=== PATIENT | male | born 2000 | race Caucasian/White ===

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

== ENCOUNTER 2019-01-15 09:27 | Outpatient (CLI) | payer OTHER, SELFPAY ==
[2019-01-15 10:25] LABS: Bilirubin Negative (Negative); Blood Negative (Negative); Clarity Clear; Glucose Negative (Negative); Ketones Negative (Negative); Leukocyte Esterase Negative (Negative); Nitrite Negative (Negative); Specific Gravity >= 1.030 (1.005-1.025); Urobilinogen 0.2 EU/dL (Up TO 0.2); pH 5.5 (5-8)
[2019-01-15 12:45] LABS: Hemoglobin A1C 5.6 % (4.5-6.2)
[2019-01-16 15:41] LABS: HCT 49.5 % (40.0-50.0); HGB 16.7 g/dL (13.5-17.5)
== END 2019-01-15 09:47 ==
PROVIDERS: PCP Internal Medicine; Visit Provider Nurse Practitioner
DX: Z00.00 Encounter for general adult medical examination without abnormal findings (principal)
CPT/HCPCS: 36415; 81003; 83036; 85014; 85018

== ENCOUNTER 2019-04-24 08:40 | Emergency (ER) | payer OTHER, SELFPAY ==
[2019-04-24] VITALS (11 sets, daily range): BP systolic 111–116; BP diastolic 74–84; PULSE 54–72; RESP 16; TEMP 36.7; O2SAT 97–100
--- NOTE | 2019-04-24 09:39 | ED.GENADUL_ITS ---
Discharge Plan Disposition Patient Disposition: HOME Condition: Stable Discharge Details Chief Complaint: Allergic Clinical Impression: Allergy to environmental factors Primary Care Provider: David Snyder ED Provider: Damian Nunez Home Meds and New Rx's Prescriptions: New cetirizine [Zyrtec] 10 mg tablet 10 mg PO DAILY Qty: 30 RF: 0 No Action ibuprofen 200 mg Tablet 800 mg PO ONCE RF: 0 Discharge Instructions Instructions: Allergies (ED) Additional Instructions: Please go home and start the Zyrtec right away and take 25 mg of Benadryl in addition to this. Watch your symptoms over the next 24 hours for any worsening redness, swelling, or fever chills return immediately to the emergency department for reassessment. Otherwise if improving you may continue to take Zyrtec daily. Referrals: David Snyder MD [Primary Care Provider] - (As needed for reassessment) Discharge Data Discharge Date/Time-TO BE ENTERED AT DEPARTURE: 04/24/19 09:59 Medical Decision Making Patient presenting to the emergency department for chief complaint of redness to face. He states that he woke up this morning with 2 streaks to the right side of his face that are now improving. Patient does state some itchy watery eyes along with clear nasal drainage. Physical exam shows very mild erythema in linear fashion to the right side of the face, noted nasal congestion with otherwise unremarkable HEENT exam. Patient does state that she has allergies and also sleeps on that side of his face with this pillow. Patient was recommended to change his pillowcase, and use an antihistamine as I feel that this is more environmental allergy related than infectious. Return cautions were discussed. After discussion of diagnosis and plan of care patient has no further needs, questions, or concerns and states clear understanding to return to the emergency department for any worsening symptoms. HPI General Mode of arrival: ambulatory . Date/Time Provider Initiated Documentation: 04/24/19 08:46 . Limitations to Documentation: no limitations . Information obtained by: patient . History of Present Illness 19 year old M presents to the emergency department with the chief complaint of allergic reaction, described as mild, Quality is described as other (denies pain), and is localized to the face. Patient started experiencing this hour(s) (2) No relieving factors improve symptom(s), Patient notes no other symptoms.. Patient did receive the following treatments prior to arrival, none Related Data Home Medications Medication Instructions Recorded Confirmed ibuprofen 800 mg PO ONCE 11/04/18 12/13/18 cetirizine [Zyrtec] 10 mg PO DAILY #30 tab 04/24/19 Previous Rx's Medication Instructions Recorded cetirizine [Zyrtec] 10 mg PO DAILY #30 tab 04/24/19 Allergies Allergy/AdvReac Type Severity Reaction Status Date / Time No Known Allergies Allergy Unverified 12/13/18 09:50 General Stated Complaint: Allergic ENRIQUE: 4 Review of Systems Constitutional Denies chills and Denies fever(s) Eyes Reports irritation and Reports itchy eyes ENT Denies lip swelling, Reports nasal congestion, Reports nasal discharge and Den ies tongue swelling Respiratory Denies cough Integumentary/Breasts Reports as per HPI, Reports pruritus and Reports erythema Allergic/Immunologic Reports itchy eyes, Denies lip swelling and Denies tongue swelling PFSH Social History Smoking/Tobacco Use Status: Never Alcohol Intake: never Drug use: Never Substance use type: does not use Do you feel safe in your relationship?: Yes Exam Const General: cooperative, healthy appearing, comfortable and no acute distress Orientation: alert, awake and oriented x3 HENMT Ears: external ears normal and TM's normal bilaterally General nose exam: external nose normal, nares normal and no nasal polyps Face and sinus: erythema (Linear) on the right maxilla Mouth: oral mucosae normal, lip normal and tongue normal Throat: posterior oropharynx normal, tonsils normal and uvula midline Eyes General: appearance normal, both eyes and all related structures Periorbital: periorbital findings normal Eyelids: eyelids normal Conjunctivae: conjunctivae normal Pupils: PERRL Resp Effort & Inspection: normal respiratory effort and able to speak in complete sentences Auscultation: clear to auscultation bilaterally Cardio Rate: regular rate and not tachycardic Rhythm: regular rhythm Heart Sounds: S1 normal and S2 normal Course Vital Signs Temperature 36.7 C 04/24/19 08:44 Pulse 63 04/24/19 08:44 Respiratory Rate 16 04/24/19 08:44 Blood Pressure 116/79 04/24/19 08:44 Pulse Oximetry 100 04/24/19 08:44 Temperature 36.7 C 04/24/19 08:44 Temperature Source Temporal Artery Scan 04/24/19 08:44 Pulse 63 04/24/19 08:44 Respiratory Rate 16 04/24/19 08:44 Respiratory Effort Non-Labored 04/24/19 08:48 Respiratory Pattern Normal 04/24/19 08:48 Blood Pressure 116/79 04/24/19 08:44 Pulse Oximetry 100 04/24/19 08:44 Oxygen Delivery Method Room Air 04/24/19 08:44 Oxygen Flow Rate 0 04/24/19 08:44
== END 2019-04-24 09:59 | disposition home or self-care (01) ==
PROVIDERS: Emergency Provider Nurse Practitioner Family; PCP Internal Medicine
DX: J30.2 Other seasonal allergic rhinitis (principal)
CPT/HCPCS: 99283

== ENCOUNTER 2023-06-04 12:54 | Outpatient (REF) | payer OTHER, SELFPAY ==
[2023-06-06 14:03] LABS: Chlamydia Result Negative (Negative); GC Result Negative (Negative)
== END 2023-06-04 12:55 | disposition home or self-care (01) ==
LOC: LBN 12:54
PROVIDERS: PCP Internal Medicine; Visit Provider Nurse Practitioner Family
DX: R30.0 Dysuria (principal); R31.9 Hematuria, unspecified
CPT/HCPCS: 87491; 87591